=== PATIENT | male | born 1990 | race Two or more races ===

== ENCOUNTER 2019-03-01 16:11 | Emergency (ER) | payer OTHER ==
[~2019-03-01] VITALS: Ht 185.4 cm; Wt 103.9 kg
[2019-03-01] MEDS ORDERED: cefTRIAXone SOD 1,000 MG VL IM ONE (17:30)
[2019-03-01] MEDS ORDERED: ALBUTEROL SULF 2.5 MG/0.5ML(0.5%) NEB SOLN NEB ONE (17:30)
[2019-03-01] MEDS ORDERED: methylPREDNISolone SOD SUCC 125 MG/2 ML VL IM ONE (17:30)
[2019-03-01] MEDS ORDERED: IPRATROPIUM BROM 0.5 MG/2.5ML INH SOL NEB ONE (17:30)
[2019-03-01] MEDS ORDERED: cefTRIAXone 1GM/50ML D5W 50 ML IV ONE ×2 (17:45→18:00)
[2019-03-01 18:06] LABS: Hemoglobin 18.4 g/dL (13.5-17.5); Lymphocytes # (auto) 1.7 uL; Monocytes # (auto) 0.8 uL; Red Cell Distribution Width 13.8 % (11.8-14.3)
[2019-03-01 18:07] LABS: Alanine Aminotransferase 55 U/L (16-61); Albumin 4.1 g/dL (3.4-5.0); Anion Gap 8 (5-15); Aspartate Aminotransferase 29 U/L (15-37); Blood Urea Nitrogen 14 mg/dL (7-18); Carbon Dioxide 22 mmol/L (21-32); Chloride 108 mmol/L (98-107); Glucose 104 mg/dL (74-106); Potassium 4.1 mmol/L (3.5-5.1); Sodium 138 mmol/L (136-145)
[2019-03-01 18:12] LABS: Alkaline Phosphatase 86 U/L (45-117); BUN/Creatinine Ratio 13.7; Bilirubin, Total 0.5 mg/dL (0.2-1.0); GFR African American 111 mL/min; GFR Non-African American 92 mL/min; Total Protein 8.2 g/dL (6.4-8.2)
[2019-03-01 18:25] LABS: Basophils # (auto) 0 uL; Basophils % (auto) 0.3 % (0.0-2.0); Eosinophils # (auto) 0.8 uL; Eosinophils % (auto) 6.9 % (0.0-7.0); Hematocrit 54.7 % (41.0-53.0); Lymphocytes % (auto) 15.3 % (10.0-50.0); Mean Corpuscular Hemoglobin 29.6 pg (28.0-32.0); Mean Corpuscular Hgb Conc. 33.6 g/dL (32.0-36.0); Mean Corpuscular Volume 87.9 fL (80.0-100.0); Monocytes % (auto) 7.3 % (0.0-12.0); Neutrophils # (auto) 7.8 uL; Neutrophils % (auto) 70.2 % (37.0-80.0); Nucleated Red Blood Cells % 0.3 %; Platelet Count (auto) 249 10^3/uL (140-450); Red Blood Cells 6.22 10^6/uL (4.5-5.90)
[2019-03-01 20:42] VITALS: BP 138/84
== END 2019-03-01 21:35 | disposition home or self-care (01) ==
LOC: EDBD 16:11 → ER 16:36
DX: I10 Essential (primary) hypertension (principal); J45.909 Unspecified asthma, uncomplicated; R73.9 Hyperglycemia, unspecified; R07.9 Chest pain, unspecified; Z88.0 Allergy status to penicillin; Z88.6 Allergy status to analgesic agent; Z86.73 Personal history of transient ischemic attack (TIA), and cerebral infarction without residual deficits
CPT/HCPCS: 36415; 71045; 80053; 83036; 84484; 85025; 93005; 94640; 96365; 96366; 96372; 99284; J0696; J2930; J7611; J7644